=== PATIENT | female | born 1950 | race Caucasian/White ===

== ENCOUNTER 2024-08-19 10:02 | Emergency (ER) | payer MEDICARE ==
[~2024-08-19] VITALS: Ht 162.6 cm; Wt 59.6 kg
[2024-08-19 10:08] VITALS: TEMP 98
[2024-08-19] MEDS ORDERED: ATORVASTATIN CA20 MG PO (10:33)
[2024-08-19] MEDS ORDERED: AMLODIPINE BESYL5 MG PO (10:33)
[2024-08-19] MEDS ORDERED: IOPAMIDOL 370 MG/ML 100 ML INFUS..BTL INJ ONE (10:51)
[2024-08-19] MEDS ORDERED: SODIUM CHLORIDE 0.9% 1000ML 1,000 ML IV SCH (11:15)
[2024-08-19] MEDS: ALTEPLASE 50 MG/VIAL (29 MILLION IU) IV ONE (12:02)
[2024-08-19] MEDS ORDERED: VITAMIN D250 MC1 (12:09)
[2024-08-19] MEDS ORDERED: CALCITRIOL0.5 MCG PO (12:09)
[2024-08-19] MEDS ORDERED: TRAMADOL HCL25 MG (12:09)
[2024-08-19] MEDS ORDERED: LIOTHYRONINE SO5 MCG PO (12:09)
[2024-08-19] MEDS ORDERED: LOSARTAN POTAS100 MG PO (12:09)
[2024-08-19] MEDS ORDERED: POTASSIUM CHLO20 ME1 PO (12:09)
[2024-08-19] MEDS ORDERED: AREXVY VIA120 MCG/0. (12:09)
[2024-08-19] MEDS ORDERED: LEVOCETIRIZINE D5 MG (12:09)
[2024-08-19] MEDS ORDERED: LEVOTHYROXINE88 MCG PO (12:09)
[2024-08-19] MEDS ORDERED: MONTELUKAST SOD10 MG PO (12:09)
[2024-08-19 12:20] VITALS: PULSE 56; RESP 19; O2SAT 100
[2024-08-19] MEDS ORDERED: ALTEPLASE 50 MG/VIAL (29 MILLION IU) IV ONE (12:45)
== END 2024-08-19 12:28 | disposition other institution (70) ==
LOC: FSED 10:06
DX: R53.1 Weakness (principal); I10 Essential (primary) hypertension; E11.9 Type 2 diabetes mellitus without complications; R94.31 Abnormal electrocardiogram [ECG] [EKG]
CPT/HCPCS: 36415; 70450; 70496; 70498; 71045; 80053; 80307; 81003; 82948; 85025; 85610; 93005; 99284; Q9967